=== PATIENT | female | born 2000 | race Native Hawaiian/Other Pacific Islander ===

== ENCOUNTER 2021-04-05 19:33 | Emergency (ER) | payer SELFPAY ==
[~2021-04-05] VITALS: Ht 160 cm; Wt 88.0 kg
[2021-04-05] MEDS ORDERED: ACETAMINOPHEN 500 MG TAB (TYLENOL) PO ONE (20:30)
[2021-04-05 20:45] LABS: BASOPHILS % (AUTO) 0 % (0-10); EOSINOPHILS # (AUTO) 0.1 10^3/uL (0.0-0.3); EOSINOPHILS % (AUTO) 0 % (0-10); HEMATOCRIT 41 % (35-52); HEMOGLOBIN 13.5 g/dL (11.5-16.0); LYMPHOCYTES # (AUTO) 1.1 10^3/uL (1.0-4.0); LYMPHOCYTES % (AUTO) 7 % (12-44); MEAN CORPUSCULAR HEMOGLOBIN 27 pg (25-34); MEAN CORPUSCULAR HGB CONC 33 g/dL (32-36); MEAN CORPUSCULAR VOLUME 81 fL (80-99); MEAN PLATELET VOLUME 9.9 fL (9.0-12.2); MONOCYTES # (AUTO) 0.7 10^3/uL (0.0-1.0); MONOCYTES % (AUTO) 4 % (0-12); NEUTROPHILS # (AUTO) 14.7 10^3/uL (1.8-7.8); NEUTROPHILS % (AUTO) 88 % (42-75); PLATELET COUNT 380 10^3/uL (130-400); WHITE BLOOD COUNT 16.7 10^3/uL (4.3-11.0)
[2021-04-05] MEDS ORDERED: LACTATED RINGERS 1,000 ML IV ONE (20:45)
[2021-04-05 20:52] LABS: ALBUMIN 4.5 GM/DL (3.2-4.5); POTASSIUM 4.3 MMOL/L (3.6-5.0)
[2021-04-05 20:53] LABS: CALCIUM 9.6 MG/DL (8.5-10.1)
[2021-04-05 20:55] LABS: TOTAL PROTEIN 7.5 GM/DL (6.4-8.2)
[2021-04-05 20:56] LABS: BILIRUBIN,TOTAL 0.5 MG/DL (0.1-1.0)
[2021-04-05 20:58] LABS: CREATININE SERUM 0.72 MG/DL (0.60-1.30)
[2021-04-05 21:10] LABS: BAND NEUTROPHILS 3 %; LYMPHOCYTES % (MANUAL) 9 %; MONOCYTES % (MANUAL) 3 %; NEUTROPHILS % (MANUAL) 85 %; RBC MORPH NORMAL
[2021-04-05 21:40] LABS: BILIRUBIN,URINE NEGATIVE (NEGATIVE); CLARITY,URINE CLEAR; COLOR,URINE YELLOW; GLUCOSE, URINE (UA) NEGATIVE (NEGATIVE); KETONES,URINE NEGATIVE (NEGATIVE); LEUKOCYTE ESTERASE ,URINE NEGATIVE (NEGATIVE); NITRITE,URINE NEGATIVE (NEGATIVE); PH,URINE 6.5 (5-9); PROTEIN,URINE NEGATIVE (NEGATIVE)
[2021-04-05 21:48] LABS: BACTERIA,URINE TRACE /HPF; WBC,URINE RARE /HPF
--- NOTE | 2021-04-05 22:02 | ED General ---
General Chief Complaint: COVID19 Suspect/Confirmed Stated Complaint: COVID SYMPTOMS Nursing Triage Note: STARTED HAVING A HEADACHE TODAY FEELS RUN DOWN AND ACHY. STATES SHE HAS FELT SHE HAS HAD A FEVER. Source of Information: Patient Exam Limitations: No Limitations Allergies and Home Medications Allergies Coded Allergies: No Known Drug Allergies (Unverified , 04/05/21) Past Gglgava-Oagmbk-Egcmst Hx Patient Social History Tobacco Use?: Yes Tobacco type used: Cigarettes Smoking Status: Current Someday Smoker Use of E-Cig and/or Vaping dev: No Substance use?: No Alcohol Use?: No Pt feels they are or have been: No Immunizations Up To Date Influenza Vaccine Up-to-Date: No; Not Current First/Initial COVID19 Vaccinat: DECLINED Past Medical History Last Menstrual Period: Mar 08, 2021 Physical Exam Vital Signs Vital Signs - First Documented 04/05/21 19:56 Temp 38.6 Pulse 113 Resp 20 B/P (MAP) 142/90 (107) Pulse Ox 99 Capillary Refill : Less Than 3 Seconds Height, Weight, BMI Height: '" Weight: lbs. oz. kg; 34.00 BMI Method: Progress/Results/Core Measures Suspected Sepsis SIRS Temperature: Pulse: 113 Respiratory Rate: 20 Laboratory Tests 04/05/21 20:05: White Blood Count 16.7H Blood Pressure 142 /90 Mean: 107 Laboratory Tests 04/05/21 20:05: Creatinine 0.72, Platelet Count 380, Total Bilirubin 0.5 Results/Orders Lab Results Laboratory Tests Test 04/05/21 19:52 04/05/21 20:05 04/05/21 21:25 04/05/21 21:32 Range/Units Influenza Type A (RT-PCR) Not Detected Not Detecte Influenza Type B (RT-PCR) Not Detected Not Detecte SARS-CoV-2 RNA (RT-PCR) Not Detected Not Detecte White Blood Count 16.7 H 4.3-11.0 10^3/uL Red Blood Count 5.06 3.80-5.11 10^6/uL Hemoglobin 13.5 11.5-16.0 g/dL Hematocrit 41 35-52 % Mean Corpuscular Volume 81 80-99 fL Mean Corpuscular Hemoglobin 27 25-34 pg Mean Corpuscular Hemoglobin Concent 33 32-36 g/dL Red Cell Distribution Width 13.1 10.0-14.5 % Platelet Count 380 130-400 10^3/uL Mean Platelet Volume 9.9 9.0-12.2 fL Immature Granulocyte % (Auto) 0 % Neutrophils (%) (Auto) 88 H 42-75 % Lymphocytes (%) (Auto) 7 L 12-44 % Monocytes (%) (Auto) 4 0-12 % Eosinophils (%) (Auto) 0 0-10 % Basophils (%) (Auto) 0 0-10 % Neutrophils # (Auto) 14.7 H 1.8-7.8 10^3/uL Lymphocytes # (Auto) 1.1 1.0-4.0 10^3/uL Monocytes # (Auto) 0.7 0.0-1.0 10^3/uL Eosinophils # (Auto) 0.1 0.0-0.3 10^3/uL Basophils # (Auto) 0.0 0.0-0.1 10^3/uL Immature Granulocyte # (Auto) 0.1 0.0-0.1 10^3/uL Neutrophils % (Manual) 85 % Lymphocytes % (Manual) 9 % Monocytes % (Manual) 3 % Band Neutrophils 3 % Blood Morphology Comment NORMAL Sodium Level 137 135-145 MMOL/L Potassium Level 4.3 3.6-5.0 MMOL/L Chloride Level 105 98-107 MMOL/L Carbon Dioxide Level 20 L 21-32 MMOL/L Anion Gap 12 5-14 MMOL/L Blood Urea Nitrogen 11 7-18 MG/DL Creatinine 0.72 0.60-1.30 MG/DL Estimat Glomerular Filtration Rate 101 BUN/Creatinine Ratio 15 Glucose Level 104 70-105 MG/DL Calcium Level 9.6 8.5-10.1 MG/DL Corrected Calcium 9.2 8.5-10.1 MG/DL Total Bilirubin 0.5 0.1-1.0 MG/DL Aspartate Amino Transf (AST/SGOT) 17 5-34 U/L Alanine Aminotransferase (ALT/SGPT) 15 0-55 U/L Alkaline Phosphatase 94 40-136 U/L C-Reactive Protein High Sensitivity 3.02 H 0.00-0.50 MG/DL Total Protein 7.5 6.4-8.2 GM/DL Albumin 4.5 3.2-4.5 GM/DL Serum Test, Qualitative NEGATIVE NEGATIVE Monoscreen NEGATIVE NEGATIVE Group A Streptococcus Screen NEGATIVE NEGATIVE Urine Color YELLOW Urine Clarity CLEAR Urine pH 6.5 5-9 Urine Specific [place] 1.010 L 1.016-1.022 Urine Protein NEGATIVE NEGATIVE Urine Glucose (UA) NEGATIVE NEGATIVE Urine Ketones NEGATIVE NEGATIVE Urine Nitrite NEGATIVE NEGATIVE Urine Bilirubin NEGATIVE NEGATIVE Urine Urobilinogen 0.2 < = 1.0 MG/DL Urine Leukocyte Esterase NEGATIVE NEGATIVE Urine RBC (Auto) NEGATIVE NEGATIVE Urine RBC NONE /HPF Urine WBC RARE /HPF Urine Squamous Epithelial Cells 5-10 /HPF Urine Crystals NONE /LPF Urine Bacteria TRACE /HPF Urine Casts NONE /LPF Urine Mucus NEGATIVE /LPF Urine Culture Indicated NO My Orders Orders - PUMA JONES MD Influenza A And B By Pcr (04/05/21 20:26) Covid 19 Inhouse Test (04/05/21 20:26) Acetaminophen Tablet (Tylenol Tablet) (04/05/21 20:30) Ed Iv/Invasive Line Start (04/05/21 20:36) Lactated Ringers (Lr 1000 Ml Iv Solution (04/05/21 20:45) Cbc With Automated Diff (04/05/21 20:36) Comprehensive Metabolic Panel (04/05/21 20:36) Hs C Reactive Protein (04/05/21 20:36) Hcg,Qualitative Serum (04/05/21 20:36) Manual Differential (04/05/21 20:05) Monotest (04/05/21 21:22) Ua Culture If Indicated (04/05/21 21:22) Rapid Strep A Screen (04/05/21 21:30) Medications Given in ED Current Medications Medications Dose Ordered Sig/Ggaan Route Start Time Stop Time Status Last Admin Dose Admin Acetaminophen 1,000 mg ONCE ONCE PO 04/05/21 20:30 04/05/21 20:31 DC 04/05/21 20:31 1,000 MG Lactated Ringer's 1,000 ml @ 0 mls/hr Q0M ONCE IV 04/05/21 20:45 04/05/21 20:46 DC 04/05/21 20:41 1,000 MLS/HR Vital Signs/I&O 04/05/21 04/05/21 19:56 20:31 Temp 38.6 38.6 Pulse 113 Resp 20 B/P (MAP) 142/90 (107) Pulse Ox 99 Capillary Refill : Less Than 3 Seconds Blood Pressure Mean: 107 Departure Impression Primary Impression: Flu-like symptoms Disposition: 01 HOME, SELF-CARE Condition: Improved Departure-Patient Inst. Decision time for Depature: 21:57 Referrals: NO,LOCAL PHYSICIAN (PCP/Family) Primary Care Physician Patient Instructions: Fever of Unknown Origin (DC), Viral Syndrome (DC) Add. Discharge Instructions: Drink plenty of clear liquids. Start with clear liquids and gradually advance your diet with small quantities of bland food as tolerated. Since you have diarrhea, you should avoid dairy products or fatty or greasy foods until your diarrhea has been resolved for at least a couple of days. You may take ibuprofen up to 600 mg every 6 hours and/or Tylenol (acetaminophen) up to 1000 mg every 6 hours as needed for treatment of pain or fever. Call with questions or concerns. Return to the ER if you have worsening symptoms. All discharge instructions reviewed with patient and/or family. Voiced understanding. Work/School Note: Work Release Form Date Seen in the Emergency Department: Apr 05, 2021 Return to Work: Mar 08, 2021 Restrictions: Return-No Fever (24hrs), Return-No Vomiting(24hrs) Other Restrictions Listed Below: May return to work/school if no fever or vomiting for 24 hrs without meds PUMA JONES MD Apr 05, 2021 22:02
[2021-04-05 22:21] VITALS: BP 142/90
== END 2021-04-05 22:22 | disposition home or self-care (01) ==
LOC: ER 19:36
DX: J11.1 Influenza due to unidentified influenza virus with other respiratory manifestations (principal); F17.210 Nicotine dependence, cigarettes, uncomplicated; Z20.822 Contact with and (suspected) exposure to COVID-19
CPT/HCPCS: 36415; 80053; 81000; 84703; 85007; 85027; 86141; 86308; 87430; 87636